=== PATIENT | male | born 1990 | race Hispanic/Latino ===

== ENCOUNTER 2020-09-06 08:50 | Day surgery (SDC) | payer OTHER ==
[2020-09-06] MEDS ORDERED: Bupivacaine 0.5% 10 ML VIAL ONE (09:16)
[2020-09-06] MEDS ORDERED: Boostrix 0.5 ML (Tdap) VIAL ONE (09:16)
[2020-09-06] MEDS ORDERED: CEFAZOLIN 1 GM VIAL ONE (10:15)
[2020-09-06 10:28] LABS: ALT (SGPT) 24 U/L (8-55); AST (SGOT) 21 U/L (5-34); Albumin 4.8 g/dL (3.5-5.0); Alkaline Phosphatase 93 U/L (40-110); Anion Gap 13 mmol/L (10-20); BUN (Urea Nitrogen) 15 mg/dL (8.9-20.6); Bilirubin, Total 0.3 mg/dL (0.2-1.2); Calc. Creatinine Clearance 0 mL/min (70-130); Calcium 9.6 mg/dL (7.8-10.44); Carbon Dioxide 27 mmol/L (22-29); Chloride 105 mmol/L (98-107); Globulin 2.8 g/dL (2.4-3.5); Glucose 113 mg/dL (70-105); Potassium 4.5 mmol/L (3.5-5.1); Protein, Total 7.6 g/dL (6.0-8.3); Sodium 140 mmol/L (136-145)
[2020-09-06] MEDS ORDERED: Gentamicin 300 MG in Sodium Chloride 0.9% 100 ML IVPB SCH (10:45)
[2020-09-06 10:52] LABS: #Basophils 0.1 thou/uL (0.0-0.2); #Eosinphils 0.1 thou/uL (0.0-0.7); #Lymphocytes 1.3 thou/uL (1.20-3.40); #Monocytes 0.4 thou/uL (0.11-0.59); #Neutrophils 4.3 thou/uL (1.40-6.50); %Eosinophils 1.1 % (0.0-10.0); %Lymphocytes 21.7 % (21.0-51.0); %Monocytes 5.8 % (0.0-10.0); %Neutrophils 70.4 % (42.0-75.0); Hemoglobin 16.7 g/dL (14.0-18.0); Mean Corpuscular HGB CONC 33.1 g/dL (32.0-36.0); Mean Corpuscular Hemoglobin 31.2 pg (27.0-31.0); Mean Corpuscular Volume 94.4 fL (78.0-98.0); Mean Platelet Volume 7.4 fL (7.4-10.4); Platelet Count 266 thou/uL (130-400); RBC Distribution Width 11.5 % (11.5-14.5); Red Blood Cell (RBC) Count 5.33 mill/uL (4.70-6.10); White Blood Cell (WBC) Count 6.1 thou/uL (4.8-10.8)
[2020-09-06 11:02] LABS: SARS-CoV-2 NAA Rapid Test Not Detected (NotDetected)
[2020-09-06] MEDS ORDERED: Sodium Chloride 0.9% 30 ML ONE (16:43)
[2020-09-06] MEDS ORDERED: Bupivacaine PF 0.5% 30 ML VIAL ONE (16:43)
[2020-09-06] MEDS ORDERED: Thrombin 5000 UNITS/5 ML VIAL ONE (16:43)
[2020-09-06] MEDS ORDERED: Bacitracin Zinc Ointment 30 gm TUBE ONE (16:43)
[2020-09-06] MEDS ORDERED: Mineral Oil Sterile 10ML 10 ML UDCUP ONE (16:43)
[2020-09-06] MEDS ORDERED: Fentanyl 100 MCG/2 ML VIAL ONE (17:33)
[2020-09-06] MEDS ORDERED: Midazolam HCl 2 mg/2 ml Vial ONE (17:33)
[2020-09-06] MEDS ORDERED: Lidocaine 1% PF 5 ML VIAL ONE (18:39)
[2020-09-06] MEDS ORDERED: PROPOFOL 200 MG/20 ML VIAL ONE (18:39)
[2020-09-06] MEDS ORDERED: Ketorolac Tromethamine 30 MG/ML VIAL ONE (20:12)
[2020-09-06] MEDS ORDERED: Meperidine HCl/PF 25 MG/ML VIAL ONE (20:27)
== END 2020-09-06 21:05 ==
LOC: ERS 08:50 → SDC 12:35
PROVIDERS: ATTEND Orthopaedic Surgery Hand Surgery
PROC: 0HRFX73 Replacement of Right Hand Skin with Autologous Tissue Substitute, Full Thickness, External Approach (ICD-10-PCS; principal; 2020-09-06)
PROC: 0PBT0ZZ Excision of Right Finger Phalanx, Open Approach (ICD-10-PCS; principal; 2020-09-06)
DX: S62.632B Displaced fracture of distal phalanx of right middle finger, initial encounter for open fracture (principal); Z20.822 Contact with and (suspected) exposure to COVID-19; W26.0XXA Contact with knife, initial encounter; Y92.148 Other place in prison as the place of occurrence of the external cause; Y99.8 Other external cause status
CPT/HCPCS: 0240U; 64450; 80053; 85025; 90471; 90715; 96365; 96367; J0690; J1580; J1885; J2175; J2250; J2704; J3010; J3490; S0020